=== PATIENT | male | born 1980 | race Caucasian/White ===

== ENCOUNTER 2022-01-02 19:42 | Emergency (ER) | payer SELFPAY ==
[2022-01-02] MEDS ORDERED: EPINEPHrine 1 MG/1 ML Amp IVPUSH ONE ×4 (19:48→20:29)
[2022-01-02] MEDS ORDERED: Naloxone 0.4 MG/ML SDV IVPUSH ONE (19:48)
[2022-01-02] MEDS ORDERED: Sodium Chloride 0.9% 1,000 ML IV SCH (20:00)
[2022-01-02] MEDS ORDERED: Sodium Bicarbonate 8.4% 50 MEQ/50 ML Syringe IVPUSH ONE (20:29)
[2022-01-02] MEDS ORDERED: Calcium Chloride 10% 1 GM/10 ML Syringe IVPUSH ONE (20:29)
[2022-01-02 21:05] LABS: ACETAMINOPHEN <2.0 ug/mL; BLOOD UREA NITROGEN,BUN 20 mg/dL (7.0-18.0); CARBON DIOXIDE,CO2 8.4 mmol/L (21.0-32.0); CHLORIDE,CL 105 mmol/L (98-107); ESTIMATED GFR 51 mL/min (>60); GLUCOSE RANDOM 195 mg/dL (74-106); POTASSIUM,K 6.4 mmol/L (3.5-5.1); SODIUM,NA 149 mmol/L (136-148)
== END 2022-01-02 20:00 | disposition expired ==
LOC: MW.ED 19:42
DX: I46.9 Cardiac arrest, cause unspecified (principal); S00.81XA Abrasion of other part of head, initial encounter
CPT/HCPCS: 31500; 36415; 71045; 80053; 80143; 80179; 80305; 80307; 81001; 83735; 92950; 96374; 96375; 99285; J0171; J2310; J7030; 99291